=== PATIENT | female | born 1960 | race Caucasian/White ===

== ENCOUNTER → 2017-09-17 | Outpatient (CLI) | payer OTHER ==
[~2017-09-17] MED LIST: DOXY100C PO
--- NOTE | 2017-09-17 17:20 | EKG ---
Date Performed: 09/17/2017 Time Performed: 15:26:18 PTAGE: 56 years EKG: Sinus rhythm LOW QRS VOLTAGE IN PRECORDIAL LEADS BORDERLINE ECG No significant change from prior electrocardiogra m. PREVIOUS TRACING : 08/14/2012 08.56 DOCTOR: Rosales Saldivar Interpretating Date/Time 09/17/2017 17:18:09
== END ==
LOC: CPRE 15:04
PROVIDERS: ATTEND Obstetrics & Gynecology
DX: Z01.810 Encounter for preprocedural cardiovascular examination (principal); D06.9 Carcinoma in situ of cervix, unspecified
CPT/HCPCS: 93005

== ENCOUNTER → 2017-09-19 | Day surgery (SDC) | payer OTHER ==
--- NOTE | 2017-09-18 17:57 | MH ---
cc: OSCAR WANG DATE OF ADMISSION 09/19/2017 DATE OF 1960. ADMISSION DIAGNOSIS High-grade dysplasia of the endocervix. 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 Her Pap smear from 01/30/2017 was negative, was positive for HPV, colpo biopsy on 03/05/2017 had shown a low grade dysplasia endocervix. A follow-up colposcopy on 08/28/2017 showed a high-grade dysplasia endocervix. She is now admitted for a cold knife cone biopsy. Additionally, she had cryosurgery in 1990 for SHEILA I. MEDICATIONS Vitamins. ALLERGIES None TRANSFUSIONS None. OBSTETRICAL HISTORY One spontaneous 1990. Vaginal delivery 1991. SOCIAL HISTORY She is . She is employed for [employer]. Alcohol, tobacco and drugs are none. PHYSICAL EXAMINATION VITAL SIGNS: Stable. HEENT: Normal. CHEST: Clear HEART: Regular rate. BREASTS: Symmetrical ABDOMEN: Benign. CLAIM TECHNICIAN: Pelvic exam normal external genitalia and BUS, vagina is normal, cervix normal, uterus normal size, shape anterior, no adnexal masses. ASSESSMENT SHEILA III endocervix PLAN She is now admitted for a cone biopsy. While in the office, I explained the procedures, the risks and benefits and complications including infection, injury, bleeding and possible need for hysterectomy. Explained and accepted. MD ANTWAN Ngo/ /4:53 PM /5:33 PM
[~2017-09-19] VITALS: Ht 165.1 cm; Wt 72.1 kg
[~2017-09-19] MED LIST changes: +ACETAMINOPHEN 1000 MG/100 ML 100 ML IV PRN; +CHLORHEXIDINE GLUCONATE 2 % 1 PACK (2 CLOTHS) TOPICAL PRN; +DEXAMETHASONE SOD PHOS 4 MG/ML VIAL IV ONE; +DO NOT ADM ANY ANTICOAGULANT DRUGS PRN; +KETOROLAC TROMETHAMINE 30 MG/ML (IVP) VIAL IV PUSH ONE; +LACTATED RINGER'S 1000 ML INJ 1,000 ML IV ONE; +LACTATED RINGER'S 1000 ML IV PRN; +LIDOCAINE 0.5%/EPINEPHrine 1:200,000 SOLN 50 ML VIAL ONE; +LIDOCAINE HCL 1% PF 5 ML SYRINGE OTHER ONE; +METOCLOPRAMIDE HCL 10 MG/2 ML VIAL IV PRN; +METOPROLOL TARTRATE 25 MG TAB PO PRN; +MIDAZOLAM HCL 2 MG/2 ML VIAL ONE; +ONDANSETRON HCL 4 MG/2 ML VIAL IV PUSH ONE; +POVIDONE IODINE 5% (ANTISEPSIS KIT) 4 APPLICATIONS EACH NARE PRN; +PROPOFOL 200 MG/20 ML AMP IV ONE; +SODIUM CHLORID 0.9% 500 ML IV PRN; +ceFAZolin 1,000 MG/NS 100 ML IV SCH; +oxyCODONE/ACETAMINOPHEN 5 MG/325 MG TAB PO PRN
[2017-09-19 08:40] VITALS: BP 121/52; PULSE 67; RESP 18; O2SAT 98
--- NOTE | 2017-09-19 16:55 | MP ---
cc: OSCAR WANG DATE OF SURGERY: 09/19/2017 PREOPERATIVE DIAGNOSIS: SHEILA II - III endocervix. POSTOPERATIVE DIAGNOSIS: SHEILA II - III Endocervix PATHOLOGY: Pending. PROCEDURE: Cold knife cone biopsy. ANESTHESIA General LMA ESTIMATED BLOOD LOSS: Less than 25 cc FLUIDS: 800 cc Crystalloid. OBJECTIVE FINDINGS Following induction of adequate general LMA anesthesia the patient was prepped and draped supine on the operating table dorsal lithotomy position in sterile fashion with the bladder being drained via catheterization. EXAMINATION This revealed normal size shape uterus with moderate descent heavy weighted speculum placed posterior horn of the vagina, cervix was sounded to 8 cm with a soft os finder, injected with 10 cc 0.50% lidocaine plus epinephrine. A knife was a bent handle was used to excise a cone specimen which was tagged at 12 o'clock. The cone bed cauterized with Bovie and four sutures of 0 Vicryl quadrant fashion, placed going external/internal external each was then tied down to ligated one-quarter the cone bed. The os finder in place to ensure cervical patency and the end of the cone beds were cauterized with bovie again. Porfirio was placed and there was no bleeding. Sutures were cut long pulses removed all counts correct. The patient was placed out of stirrups. She was awakened and taken to the room in good condition. MD ANTWAN Ngo/karishma /8:00 AM /4:45 PM
== END | disposition home or self-care (01) ==
LOC: HSDC 05:25
PROVIDERS: ATTEND Obstetrics & Gynecology
DX: N72 Inflammatory disease of cervix uteri (principal)
CPT/HCPCS: 00940; 57520; 88307; J0131; J0690; J1100; J1885; J2250; J2405; J7120